=== PATIENT | male | born 2000 | race Two or more races ===

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

== ENCOUNTER 2024-11-26 13:16 | Emergency (ER) | payer MEDICAID, SELFPAY ==
[2024-11-26 13:52] VITALS: BP 129/81; PULSE 66; RESP 20; TEMP 37.2; O2SAT 99
--- NOTE | 2024-11-26 14:26 | PD.EDBACK ---
ED Back Injury Pain RME/HPI General Chief Complaint: Back Pain/Injury Stated Complaint: LOWER BACK PAIN Time Seen by Provider: 11/26/24 14:01 Arrival date/time: 11/26/24 13:16 This is a 24-year-old male that comes in with complaints of lower back pain. Patient denies trauma or fall. Patient reports that he bent over to pick something up and started having pain. Patient denies any numbness tingling. Patient denies any loss of bowel or bladder bladder control. Patient complains of pain to lateral muscles to lower back. Mainly on the left side. Patient denies any past medical history patient denies any urinary symptoms Related Data Home Medications ?Medication ?Instructions ?Recorded ?Confirmed loratadine 10 mg tablet (Claritin) 10 mg PO QDAY Allergies #0 tabs 02/02/16 05/11/19 montelukast 5 mg chewable tablet 5 mg PO HS ##0 04/26/16 05/11/19 (Singulair) Previous Rx's ?Medication ?Instructions ?Recorded ibuprofen 600 mg tablet 600 mg PO TID PRN chest pin #20 11/12/18 tabs epinephrine 0.3 mg/0.3 mL 1 mg subcut .one PRN 05/11/19 injection, auto-injector (EpiPen) hypersensitivity reaction #1 ea prednisone 20 mg tablet 20 mg PO QDAY #5 tabs 05/11/19 prednisone 20 mg tablet 20 mg PO QDAY #7 tabs 08/05/19 albuterol sulfate 2.5 mg/3 mL 2.5 mg (3 mL) inhalation Q4H PRN 05/17/22 (0.083 %) solution for nebulization shortness of breath or wheezing #75 mL montelukast 10 mg tablet 10 mg PO QDAY #30 tabs 05/17/22 (Singulair) ibuprofen 800 mg tablet 800 mg PO TID PRN pain #30 tabs 09/17/22 cyclobenzaprine 10 mg tablet 10 mg PO HS PRN muscle spasm #14 11/26/24 tabs ibuprofen 800 mg tablet 800 mg PO Q6H PRN pain #10 tabs 11/26/24 Allergies Allergy/AdvReac Type Severity Reaction Status Date / Time BEE Allergy Severe Difficulty Uncoded 11/26/24 13:18 Swallowing Review of Systems Review of Systems Systems Reviewed: All systems reviewed, normal except as documented Past Medical History Past Medical History CARDIAC: Negative Cardiac Disorders or Congestive Heart Failure RESPIRATORY: Positive Asthma; Negative Chronic Obstructive Pulmonary Disease (COPD) GENITOURINARY: Negative Renal Disease ENDOCRINE: Negative Diabetes Mellitus Type 1 or Diabetes Mellitus Type 2 Surgical History SURGICAL: Positive Ear Surgery Social History SMOKING STATUS: Never smoker SUBSTANCE USE: does not use ED Exam General General appearance: Present alert and in no apparent distress Head Head exam: Present atraumatic Eye Eye exam: Present normal appearance, PERRL and EOMI ENT ENT exam: Present normal exam, normal oropharynx and mucous membranes moist Neck Neck exam: Present normal inspection, full ROM and trachea midline Chest Chest inspection: Present normal inspection and symmetric chest wall rise Respiratory Respiratory exam: Present normal lung sounds bilaterally Cardiovascular Cardiovascular exam: Present regular rate, normal rhythm and normal heart sounds Abdominal Exam Abdominal exam: Present soft Extremities Exam Extremities exam: Present normal inspection and full ROM Back Exam Back exam: Present full ROM and other (Pain to bilateral lateral muscles to lower back. No pain over spinal processe to palpation) Neurological Exam Neurological exam: Present alert, oriented X3 and CN II-XII intact Psychiatric Psychiatric exam: Present normal affect and normal mood Skin Skin exam: Present warm, dry, intact and normal color Course Quality Measures none Orders Category Date Time Status CYCLObenzaPRINE [Flexeril] Med 11/26/24 14:22 Discontinued 5 mg PO X1 ONE HYDROcodone*/APAP 5/325 [[place] 5/325] Med 11/26/24 14:22 Discontinued 1 tab PO X1 ONE Ketorolac Inj [Toradol Inj] Med 11/26/24 14:22 Discontinued 60 mg IM X1 ONE Ondansetron Odt [Zofran Odt] Med 11/26/24 14:22 Discontinued 4 mg PO X1 ONE Vital Signs Vital signs: Vital Signs Temperature 98.9 F 11/26/24 13:52 Pulse Rate 66 11/26/24 13:52 Respiratory Rate 20 11/26/24 13:52 Blood Pressure 129/81 11/26/24 13:52 Pulse Oximetry (%) 99 11/26/24 13:52 Oxygen Delivery Method Room Air 11/26/24 13:52 Back Pain / Injury MDM Narrative MDM Narrative:: Patient given Toradol, Flexeril, [place], and Zofran. Patient felt better. I told patient to get plenty rest and ice pack as needed. Come back to the emergency room if symptoms change or worsen for further studies if needed if not follow-up with primary provider in 1 to 2 days. Patient data External records reviewed:: [facility] previous records Clinical information provided by:: patient Social determinants that could affect healthcare access:: none Patient has the following chronic illnesses:: none How is presenting disease/condition affected by chronic disease/condition?: no chronic disease Evaluation data The following diagnostics were reviewed and interpreted by me:: lab results and other (specify) (none ) Lab and/or radiology exams considered but not ordered:: none Interpretation Summary: none Medications / Prescriptions Medications or Prescriptions considered but not ordered:: none Medication administrations:: Medication Administration History Discontinued Medications Hydrocodone Bitart/Acetaminophen (Hydrocodone/Apap 5/325 Tablet) 1 tab PO X1 ONE Stop: 11/26/24 14:23 Last Admin: 11/26/24 14:40 Dose: 1 tab Documented By: DINESH Cyclobenzaprine HCl (Cyclobenzaprine 5 Mg Tablet) 5 mg PO X1 ONE Stop: 11/26/24 14:23 Last Admin: 11/26/24 14:40 Dose: 5 mg Documented By: DINESH Ketorolac Tromethamine (Ketorolac Inj 60 Mg/2 Ml Vial) 60 mg IM X1 ONE Stop: 11/26/24 14:23 Last Admin: 11/26/24 14:39 Dose: 60 mg Documented By: DINESH Ondansetron HCl (Ondansetron Odt 4 Mg Tabrap) 4 mg PO X1 ONE; Protocol Stop: 11/26/24 14:23 Last Admin: 11/26/24 14:40 Dose: 4 mg Documented By: DINESH see [facility] Consultations Consultation(s) initiated? (list below): No Diagnosis Most likely diagnosis given after review of the tests above:: back pain Admission Indicated Admission indicated?: not indicated Admission Request Was there a request for admission?: No Disposition Plan Disposition Plan: Discharge Discharge Attestation Discharge Attestation: The patient and all family members were given an opportunity to ask questions and understood the discharge instructions. Discharge instructions specifically effects, indications for sooner follow up or return to the emergency department, and the expected course of current diagnosis. Patient condition: Stable Discharge Plan Plan Patient Disposition: HOME (Self Care) Patient condition on transfer: Stable Prescriptions/Referrals Prescriptions/Med Rec: New ibuprofen 800 mg tablet 800 mg PO Q6H PRN (Reason: pain) Qty: 10 0RF cyclobenzaprine 10 mg tablet 10 mg PO HS PRN (Reason: muscle spasm) Qty: 14 0RF No Action loratadine [Claritin] 10 MG tablet 10 mg PO QDAY Qty: 0 montelukast [Singulair] 5 MG tablet,chewable 5 mg PO HS Qty: 0 ibuprofen 600 mg tablet 600 mg PO TID MDD 3 PRN (Reason: chest pin) Qty: 20 0RF epinephrine [EpiPen] 0.3 mg/0.3 mL auto-injector 1 mg SC .one PRN (Reason: hypersensitivity reaction) Qty: 1 0RF prednisone 20 mg tablet 20 mg PO QDAY Qty: 5 0RF prednisone 20 mg tablet 20 mg PO QDAY Qty: 7 0RF albuterol sulfate 2.5 mg /3 mL (0.083 %) solution for nebulization 2.5 mg inhalation Q4H PRN (Reason: shortness of breath or wheezing) Qty: 75 0RF montelukast [Singulair] 10 mg tablet 10 mg PO QDAY Qty: 30 0RF ibuprofen 800 mg tablet 800 mg PO TID PRN (Reason: pain) Qty: 30 0RF Problem List Clinical Impression: Back pain Patient/Caregiver Discharge Instructions Discharge Activity: activity as tolerated Education Materials: ED Back Pain (Acute or Chronic) Additional Instructions: Follow up with primary provider in 1-2 days. Come back to ED if symptoms change or worsen Print Language: Malay Stand Alone Forms: Rachael Award Info., Patient Portal Info Letter PA/BETTE Supervising Physician SHANTELL/BETTE Supervising Physician: beatriz
[2024-11-26] MEDS: KETOROLAC INJ 60 MG/2 ML VIAL IM (14:39)
[2024-11-26] MEDS: CYCLObenzaPRINE 5 MG TABLET PO (14:40)
[2024-11-26] MEDS: HYDROcodone/APAP 5/325 TABLET 1 TAB PO (14:40)
[2024-11-26] MEDS: ONDANSETRON ODT 4 MG TABRAP PO (14:40)
== END 2024-11-26 14:46 | disposition home or self-care (01) ==
LOC: SERX 14:27
PROVIDERS: Emergency Provider Emergency Medicine; PCP Family Medicine
DX: M54.50 Low back pain, unspecified (principal)
CPT/HCPCS: 96372; 99283; J1885; Q0162; A9270